=== PATIENT | female | born 1995 ===

== ENCOUNTER 2023-09-26 06:01 | Emergency (ER) | payer OTHER, SELFPAY ==
[2023-09-26 06:22] VITALS: BP 110/61; PULSE 62; RESP 20; TEMP 36.4; O2SAT 96; BMI 39.5
--- NOTE | 2023-09-26 07:13 | ED_ITS ---
HPI - General Adult General Chief complaint: General Medical Stated complaint: Abd pain after taking cold medicine Time Seen by Provider: 09/26/23 06:42 Source: patient Mode of arrival: ambulatory Limitations: no limitations History of Present Illness ED Provider: Callie VELASQUEZ HPI narrative: This is a 28-year-old female history of city presenting to the emergency department with complaints of sore throat, fatigue, myalgias, stuffy nose, congestion since Monday. Patient reports this started status post trip to [place]. Patient also states that this morning she took a Tylenol cold and head congestion severe pill, on an empty stomach and right after taking it she had epigastric burning/discomfort which has since subsided. She tells me she is feeling better now however her throat still hurts she is still having body aches and pains and congestion. Denies chest pain, shortness of breath, vision changes, dizziness, weakness, vomiting, diarrhea, fevers, chills. No sick co ntacts Related Data Previous Rx's ?Medication ?Instructions ?Recorded Magic Mouthwash 5 ml PO TID #240 mL 09/26/23 Diphen/Lido/Antacid 1:1:1 240 mL suspension Allergies Allergy/AdvReac Type Severity Reaction Status Date / Time aspirin Allergy Facial Verified 09/26/23 06:23 Swelling ibuprofen Allergy Facial Verified 09/26/23 06:23 Swelling Review of Systems Review of Systems: Yes all other systems are reviewed and are negative PMFSH Past Medical History Attestation statement: The following information was validated with the patient. Source: old records reviewed and nursing notes reviewed Social History Social History Smoked in Last 30 Days: No Use of substances other than those prescribed or required for medical reasons: No Advance Directives: No Advance Directives Information Provided: Yes Patient : No Physical Exam ED Vital Signs: Vital Signs - 24 hr 09/26/23 06:22 Temperature 97.5 F Pulse Rate 62 Respiratory Rate 20 Blood Pressure 110/61 Pulse Oximetry 96 Oxygen Delivery Method Room Air BMI result Body Mass Index 39.5 vss Appearance: Alert.? Oriented X3.? No acute distress.? Head: Normocephalic, atraumatic, no step-offs or deformities Eyes: Pupils equal, round and reactive to light.? ENT: Pharynx normal.?Uvula midline. Normal tonsils b/l no exudates or abscess. Speaking in full sentences controlling secretions well. Neck: Normal inspection.? Neck supple.? CVS: Normal heart rate and rhythm.? Pulses normal.? Respiratory: No respiratory distress.? Breath sounds normal.? Abdomen: Soft and nontender.?Negative murphys, mcburneys point, rosving. Skin: Skin warm and dry.? Normal skin color.? Normal skin turgor.? Extremities: No lower extremity edema.? No calf ttp. 5/5 strength to bilateral upper and lower extremities Neuro: Oriented X 3.? No motor deficit.? No sensory deficit. CN 2-12 intact Course Reevaluation(s) Reevaluation #1: Flu, COVID, RSV and strep negative. Monospot ordered and pending. Will discharge her with magic mouthwash, this is likely viral. No abdominal tenderness on exam therefore no indication for imaging at this time. Educated patient on diagnosis and treatment plan, answered all question, patient verbalizes understanding. At this time patient will be discharged home, advised to return with new or worsening symptoms. Educated on worrisome signs and symptoms and when to return. At this time I feel comfortable discharge home. Time: 08:23 Medical Decision Making Medical Decision Making [facility] Narrative: 722 28-year-old female presents with viral symptoms after returning from [place]. Patient also reports epigastric pain that started after taking a pill on an empty stomach which has since subsided. Physical exam benign History and physical exam concerning for flu versus COVID versus strep. Unlikely acute abdomen appendicitis, cholecystitis, diverticulitis, choledocholithiasis, cholangitis, obstruction. Unlikely metabolic derangements. No signs of peritonsillar abscess or retropharyngeal abscess or acute threat to airway Plan viral testing, strep test Differential Diagnosis Differential Diagnoses: The differential diagnosis associated with the presentation includes History and physical exam concerning for flu versus COVID versus strep. Unlikely acute abdomen appendicitis, cholecystitis, diverticulitis, choledocholithiasis, cholangitis, obstruction. Unlikely metabolic derangements. No signs of peritonsillar abscess or retropharyngeal abscess or acute threat to airway Admission/Observation Consideration of admission/observation: Escalation of care including admission/observation considered possible Lab Data [facility] Lab Attestation statement: I reviewed the patient's lab results. Labs: Lab Results 09/26/23 Range/Units 06:42 Influenza Type A (PCR) NEGATIVE (Negative) Influenza Type B (PCR) NEGATIVE (Negative) RSV RNA Qual (PCR) NEGATIVE (Negative) SARS-CoV-2 RNA (RT-PCR) NEGATIVE (Negative) S. pyogenes GrpA TONO Negative (Negative) Tests considered The following testing was considered but not selected: Considered CT abdomen and pelvis however no abdominal tenderness on exam, abdominal pain subsided. Chronic Conditions Patient?s care impacted by: Other (Obesity ) Discharge Plan Discharge Clinical Impression: Viral illness, Pharyngitis Patient Disposition: Home, Self-Care Instructions: Pharyngitis (ED), Viral Syndrome (ED) Additional Instructions: Take your medications as prescribed. If you were prescribed antibiotics today, it is important that you take your medication to their entirety, do not skip any doses, do not finish them early. Follow-up with your primary care provider this week. Return to the emergency department with new or worsening symptoms. Such as fevers, chills, chest pain, shortness of breath, nausea, vomiting, dizziness, headache, vision changes, lethargy In case of emergency call 911 Influenza- negative COVID- negative Strep- negative RSV- negative This is likely a viral illness and may last anywhere between 5-10 days. Garggle with salt water. Return with new or worsening symptoms Prescriptions: New Magic Mouthwash Diphen/Lido/Antacid 1:1:1 240 mL suspension 5 ml PO TID Qty: 240 0RF Rx Instructions: Lidocaine Viscous 2 % 80mL; diphenhydramine 12.5 mg/5 mL 80mL; aluminum-mag hydrox-simeth [id number]/5mL 80mL Swish and spit, do not swallow Referrals: Physician,Unknown J [Primary Care Provider] - 2 days Stand Alone Forms: Work/School Release Print Language: Uzbek
[2023-09-26 07:22] LABS: Influenza A PCR NEGATIVE (Negative); Influenza B PCR NEGATIVE (Negative); Resp Syncy Virus RNA Qual PCR NEGATIVE (Negative); SARS COV2 PCR INHOUSE NEGATIVE (Negative)
[2023-09-26 08:00] LABS: IDNOW Serial# 08D9AD1C; Strep A Nucleic Acid Negative (Negative)
[2023-09-26 08:27] VITALS: BP 100/52; PULSE 67; RESP 18; TEMP 36.4; O2SAT 99
[2023-09-26 09:28] LABS: Monotest Negative (Negative)
== END 2023-09-26 08:34 | disposition home or self-care (01) ==
PROVIDERS: Physician Assistant; Emergency Provider Emergency Medicine Emergency Medical Services
DX: B34.9 Viral infection, unspecified (principal); J02.9 Acute pharyngitis, unspecified; Z03.818 Encounter for observation for suspected exposure to other biological agents ruled out
CPT/HCPCS: 0241U; 36415; 86308; 87651; 99283; 99284

== ENCOUNTER 2024-09-26 23:59 | Emergency (ER) | payer SELFPAY ==
--- OUTSIDE RECORDS SUMMARY | 2019-05-02 12:19 | XMS_ITS | Continuity of Care Document ---
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 Role Phone Generic Provider, [facility] Unavailable Unavailabl e Allergies, Adverse Reactions, Alerts Substance Reaction Status Criticality aspirin angioedema Active No Information Medications Medication Instructions Dosage Effective Dates (start - stop) Status Comments Vitamin D3 1,000 unit tablet take one tablet by mouth daily - Active ibuprofen 600 mg tablet take 1 tablet by oral route every 6-8 hours PRN (with food) - Active Procedures Procedure Date IMMUNIZATION ADMIN Meningococcal, SG B,Recombit Protn&vesic le, 2 Dose OFFICE/OUTPATIENT VISIT, EST Prophylaxis-Child topical application of fluoride 016 Bitewings-Four Films Intraoral-Periapical First Film 016 Intraoral-Periapical Each Additional Jake m PURE TONE HEARING TEST, AIR PREV VISIT, EST, AGE 18-39 IMMUNIZATION ADMIN Meningococcal, SG B,Recombit Protn&vesic le, 2 Dose IMMUNIZATION ADMIN HEPB VACC PED/ADOL 3 DOSE IM IMMUNIZATION ADMIN, EACH ADD CHICKEN POX VACCINE, SC OFFICE/OUTPATIENT VISIT, EST IMMUNIZATION ADMIN H PAPILLOMA VACC 3 DOSE IM IMMUNIZATION ADMIN, EACH ADD TDAP VACCINE >7 IM IBUPROFEN, TABLET, 600 MG OFFICE/OUTPATIENT VISIT, EST IMMUNIZATION ADMIN HEP A VACC, PED/ADOL, 2 DOSE IMMUNIZATION ADMIN, EACH ADD MENINGOCOCCAL VACCINE IM OFFICE/OUTPATIENT VISIT, EST OFFICE/OUTPATIENT VISIT, NEW Advance Directives Directive Yes / No Effective Date File Name No Information Encounters Encounter Description Practice Location Reason(s) For Visit Diagnoses Date Provider Providers Copied on Encounter [facility], [address] [place] [address], [id number], [place] tel:[phone] [facility] Pediatrics No Information 0 Generic Provider [facility]. . OFFICE/OUTPA TIENT VISIT, [facility], [address] [place] [address], [id number], [place] tel:[phone] [facility] Adolescent Health vaccine update (chief complaint) Encounter for immunizationVit brad mcfarland 6 No Information [facility], [address] [place] [address], [address], [place] tel:[phone] [facility] Adolescent Health No Information 6 No Information [facility], [address] [place] [address], [address], [place] tel:[phone] [facility] Dental Encounter for dental exam and cleaning w/o abnormal findings 6 Mikel Ritter. [address] [place] [address], [id number] [place], [place], [id number], [place]. tel:[phone] PREV VISIT, EST, AGE 18-39 [facility], [address] [place] [address], [address], [place] tel:[phone] [facility] Adolescent Health school physical (chief complaint) Encounter for exam of ears and hearing w/o abnormal findingsObesity , unspecifiedEnco unter for immunizationEnc ounter for screening for respiratory tuberculosisScr eening for depressionWell child check w/ abnormal findingsPerfora chandra tympanic membrane, right 6 No Information OFFICE/OUTPA TIENT VISIT, [facility], [address] [place] [address], [facility], [place] tel:[phone] [facility] Adolescent Health f/u (chief complaint) HeadacheVaccina tion requiredObesity , unspecified 5 Harbry Taylor. [address], [id number] [place], [address], [place]. tel:[phone] OFFICE/OUTPA TIENT VISIT, [facility], [address] [place] [address], [facility], [place] tel:[phone] [facility] Adolescent Health headaches (chief complaint) Routine Medical ExamVaccination requiredHeadach e 5 Harbry Waqarev. [address] [facility], [id number] [place], [place], [facility], [place]. tel:[phone] OFFICE/OUTPA TIENT VISIT, [facility], [address] [place] [address], [facility], [place] tel:[phone] [facility] Adolescent Health F/U (chief complaint) Obesity, unspecifiedUnsp ecified vitamin d deficiencyConst ipation, unspecifiedVacc ination required 5 Harbry Zeev. [address] [facility], [id number] [place], [address], [place]. tel:[phone] OFFICE/OUTPA TIENT VISIT, [facility], [address] [place] [address], [facility], [place] tel:[phone] [facility] Pediatrics Establish care (chief complaint) Diabetes concerns (chief complaint) Fainting (chief complaint) SyncopeObesity, unspecifiedAcqu ired acanthosis nigricans 5 No Information Family History Family Member Type Diagnosis Age At Onset Problem (finding) Family history of diabetes mellitus type 2 Immunizations Vaccine Date Status Comments meningococcal B, OMV, 2 dose schedule administered Source: New Immuniza tion Record meningococcal B, OMV, 2 dose schedule administered Source: New Immuniza tion Record Varicella administered Source: New Imm unization Record Hep B (ped/adol, 3 dose) administered Kamini rce: New Immunization Record Tdap administered Source: New Imm unization Record HPV administered Source: New Imm unization Record Hep A (ped/adol, 2 dose) administered Kamini rce: New Immunization Record MCV4 (11-55 yrs) administered Source: New Immunization Record HPV administered Source: Other P rovider Hep A (ped/adol, 2 dose) administered Kamini rce: Other Provider MCV4 (11-55 yrs) administered Source: Oth er Provider varicella virus vaccine administered Sour ce: Other Provider Td, preservative free, (7 yr s and older) administered Source: Other Provid er HPV, unspecified formulation administered Source: Other Provider poliovirus vaccine, inactivated administe red Source: Other Provider measles, mumps and rubella virus vaccine administered Source: Other Provid er Haemophilus influenzae type b vaccine, conjugate unspecified formulation administered Source: Other Provid er diphtheria, tetanus toxoids and acellular pertussis vaccine administered Source: Othe r Provider Varicella administered Source: Other P rovider MMR administered Source: Other P rovider poliovirus vaccine, inactivated administe red Source: Other Provider hepatitis B vaccine, pediatr ic or pediatric/adolescent dosage administered Source: O ther Provider Haemophilus influenzae type b vaccine, conjugate unspecified formulation administered Source: Other Provid er diphtheria, tetanus toxoids and acellular pertussis vaccine administered Source: Othe r Provider poliovirus vaccine, inactivated administe red Source: Other Provider hepatitis B vaccine, pediatr ic or pediatric/adolescent dosage administered Source: O ther Provider Haemophilus influenzae type b vaccine, conjugate unspecified formulation administered Source: Other Provid er diphtheria, tetanus toxoids and acellular pertussis vaccine administered Source: Othe r Provider polio, inactive administered Source: Othe r Provider Hep B (ped/adol, 3 dose) administered Kamini rce: Other Provider Hib (PRP-OMP) administered Source: Other Provider DTaP (younger than 7 yrs) administered So urce: Other Provider Payers Payer name Insurance type Covered alliance party ID Kingsley lowery(s) KAROLINA Saravia [id number] D Medicaid [id number] KAROLINA Saravia [id number] KAROLINA Saravia [id number] KAROLINA Saravia [id number] KAROLINA Saravia [id number] Social History Type Description Quantity Date Captured Comments Sex Female Smoking Status No Information Sexual Orientation Choose not to disclose Gender Identity Female Chief Complaint And Reason For Visit No Information Reason For Referral Reason For Referral No Information Plan Of Treatment Date Type Action Status Goal Lifestyle education regardin g diet completed Referral Ordered: Referrals: Otolaryngology Appointment date/timeframe: 03/17/2016 ordered Patient Education Learning About Vitamin D completed History Of Present Illness Encounter Date Complaint History Of Prese nt Illness vaccine update Presents to the office for vaccine update. Due for Men B # 2. Also had full physical last month ( see chart) and was unable to reach patient about lab results as noted below: school physical Patient presents to the office for a school physical.TB risk assessment: Was patient born outside [place]? noHas patient traveled outside [place]? noHas patient been exposed to anyone with TB? noDoes patient have close contact with someone with + TST or IGRA? noDoes patient live with someone who has been in shelter, has lived in a alf, injects IV drugs or has HIV? noHas patient eaten unpasteurized cheese from [place] or [place]? No f/u Here for F/U. Le ss headaches. No vomiting. No awakenings b/o H/As. No fever. No runny nose.Has D/C vitamin D because she had H/A after taking it.Needs Hep B and Varivax based on serology.1. Went to [place] on 09/28/14 b/o constipation, was recommended Colace, now with regular BMS. 2. Hx of obesity, weight unchanged from last visit.3. Had syncope on 09/03/14. No other episodes since that time. Episode was on a hot day during which she did not drink enough. No chest pain.Came from [place] in 2011. No hospitalizations.Denies smoking and drug abuse. Regular periods, LMP-10/07/14. No sex yet. Will attend 11th grade at [employer]. Reports good mood, no SI.Sleeps 9 hours/night. Eats breakfast daily. Allergic to aspirin. headaches Here for F/U. Goddard s had headaches for the past 3 days. No vomiting. No awakenings. No fever. No runny nose.1. Went to [place] on 09/28/14 b/o constipation, was recommended Colace, now with regular BMS. 2. Hx of obesity, weight unchanged from last visit.3. Had syncope on 09/03/14. No other episodes since that time. Episode was on a hot day during which she did not drink enough. No chest pain.Came from [place] in 2011. No hospitalizations.Denies smoking and drug abuse. Regular periods, LMP-10/07/14. No sex yet. Will attend 11th grade at [employer]. Reports good mood, no SI.Sleeps 9 hours/night. Eats breakfast daily. Allergic to aspirin. F/U Here for F/U. 1. Went to [place] on 09/28/14 b/o constipation, was recommended Colace, still hard stools. 2. Hx of obesity, has gained 1.4 lbs from last visit.3. Had syncope on 09/03/14. No other episodes since that time. Episode was on a hot day during which she did not drink enough. No chest pain, no H/As.Came from [place] in 2012. No hospitalizations.Denies smoking and drug abuse. Regular periods, LMP-09/09/14. No sex yet. Will attend 11th grade at [employer]. Reports good mood, no SI.Sleeps 9 hours/night. Eats breakfast daily. Allergic to aspirin. Fainting Patient reports that she collapsed 3 days ago-- she reports feeling confused and dizzy. It is unclear if she loss consciousness. Patient reports that on the day of the incident it was very hot outside. Patient has been going to sleep at around 7am and sleeping until about 4pm. On that day, she ate around 6am and then went to sleep. She woke up in the afternoon and walked several blocks to the grocery store with her mother. She did not eat or have anything to drink. At the store she began to feel dizzy and weak and then fell to the floor while standing in the check out line. Mother is unsure if patient passed out but states that if she did it was only for a few seconds. Patient denied any concurrent chest pain or irregular feeling heart beat. She did not go to the emergency room following the incident.Mother and patient admit that patient does not drink much water. This is the first incident of syncope or near-syncope for this patient. Diabetes concerns Mother and pat linn express concern that patient may have diabetes due to the fact that there is a family history of diabetes and because patient recently fainted and feels faint or dizzy when she does not eat. Patient has never had any work-up by previous providers for diabetes. Establish care Alyce is a new p atient who presents today with her mother to establish care, and with concerns regarding recent syncope. Alyce and her mother deny any significant past medical history. Patient does not currently take any medications and has no medical diagnoses. She has no history of cardiac, respiratory, or neurological disorders. Functional Status Date Functional Assessmen t No Information Instructions Date Instruction Bill Chenr danemc Educated verbally an d in writing about diagnosis and treatment. Given patient education hand out as seen attached to chart. Increase calcium and vitamin D in the diet ( tuna, salmon, milk, orange juice, cod liver oil, fortified cereals, etc). Exposure to sunlight in the warmer months with sunscreen. Supplement as ordered, to purchase over the counter. Related to Vitamin D insufficiency Referral to ENT Related to Perfo rated tympanic membrane, right Recommend 30 minutes of physical activity daily, 3 healthy meals and 2 snacks, adequate servings of fruits, vegetables, low fat dairy and lean meats. Labs as ordered. Related to Obesity, unspecified Negative depression screen today . Related to Screening for depression Negative TB Question er - testing deferred today. Related to Encounter for screening for respiratory tuberculosis Follow up in one mon th for Men B # 2. Related to Encounter for immunization Follow up in one yea r for repeat exam, sooner for any concerns. Related to Well child check w/ abnormal findings Lifestyle education regarding di et Related to Obesity Assessments Type Assessment Date No Information Patient Care Teams Name Effective Dates (start - stop) Status Members No Information
[2024-09-27 00:04] VITALS: BP 118/62; PULSE 61; RESP 20; TEMP 36.5; O2SAT 100; BMI 38.7
[2024-09-27 00:45] LABS: MANUAL DIFF FLAG NO
--- NOTE | 2024-09-27 00:46 | ED_ITS ---
HPI - Nausea/Vomiting/Diarrhea General Chief complaint: Nausea/Vomiting/Diarrhea Stated complaint: N/V/D Time Seen by Provider: 09/27/24 00:04 History of Present Illness ED Provider: Fernando Wahl MD HPI Narrative: 29-year-old female who reports GI symptoms including nonbloody nonbilious vomiting after eating at [employer]. Related Data Previous Rx's ?Medication ?Instructions ?Recorded Magic Mouthwash 5 ml PO TID #240 mL 09/26/23 Diphen/Lido/Antacid 1:1:1 240 mL suspension Allergies Allergy/AdvReac Type Severity Reaction Status Date / Time aspirin Allergy Facial Verified 09/27/24 00:05 Swelling ibuprofen Allergy Facial Verified 09/27/24 00:05 Swelling PMFSH Social History Social History Smoked in Last 30 Days: No Use of substances other than those prescribed or required for medical reasons: No Advance Directives: No Physical Exam 2 Exam: Exam: EXAM: Gen: Alert, awake, well appearing, well hydrated. Head: Atraumatic Eyes: Anicteric, Normal conjunctiva. ENT: Moist mucosa, no pallor. ? Neck: Supple. Skin: ?No observable rash or bruising on exposed or examined skin Respiratory: Breathing comfortably, No distress.Clear to auscultation bilaterally, symmetric chest expansion, No wheeze, rales, ronchi. Cardiovascular: Regular rate and rhythm. No murmurs or rub. Well perfused periphery, warm extremities. No edema. ? Abdominal: No focal tenderness. Soft, no objective distension. No palpable masses or obvious organomegaly. ?No guarding, no rebound tenderness or other peritoneal findings. : No flank tenderness. Neuro: Alert. Gross movement of all extremities intact. ? Psych: Calm. Cooperative. MSK: No grossly visible deformity. Vital signs: See flowsheet Vital Signs: Vital Signs: Last Vital Signs Temp 98.0 F 09/27/24 01:54 Pulse 65 09/27/24 01:54 Resp 16 09/27/24 01:54 BP 110/59 L 09/27/24 01:54 Pulse Ox 99 09/27/24 01:54 O2 Del Method Room Air 09/27/24 01:54 BMI result Body Mass Index 38.7 Medications Administered Discontinued Medications Generic Name Dose Route Start Last Admin Trade Name Pedro PRN Reason Stop Dose Admin Ondansetron HCl 4 mg 09/27/24 00:48 09/27/24 00:59 Ondansetron Odt 4 Mg Tab.Domonique CABRALES 09/27/24 00:49 4 mg ONCE ONE Administration Medical Decision Making Medical Decision Making MDM Narrative: Medical Decision Makin-year-old female with GI symptoms after eating at [employer]. Friend who ate with her is also here for similar symptoms. No bloody vomit no abdominal tenderness. Patient's vitals and examination of reassuring. This is likely food-borne illness. Preliminary Favored Differential Diagnosis: Food-borne illness, gastroenteritis, dehydration among additional considered etiologies Testing Interpreted Independently: Not Applicable Radiology or Lab testing Results Reviewed: Not Applicable Consults: Not Applicable Independent Historians/External Chart Reviews: Not Applicable Social Determinants of Health Impacting MDM/Planning: Not Applicable Lab Data 09/27/24 00:41 09/27/24 00:41 Labs: Lab Results 09/27/24 Range/Units 00:41 WBC 5.7 (4.8-10.8) X10*3/uL RBC 4.22 (4.20-5.50) X10*6/uL Hgb 12.0 (12.0-16.0) g/dl Hct 34.6 L (37.0-47.0) % MCV 82.0 (80.0-98.0) fL MCH 28.4 (27.0-33.0) pg MCHC 34.7 (31.0-35.0) g/dl RDW 12.8 (11.0-16.0) % Plt Count 249 (160-400) X10*3/uL MPV 8.8 L (9.4-12.3) fL Immature Gran % (Auto) 0.2 (0.0-0.4) % Neut % (Auto) 47.5 (45-73) % Lymph % (Auto) 41.5 H (20-40) % Crook % (Auto) 7.9 (2-11) % Eos % (Auto) 2.4 (0-4) % Baso % (Auto) 0.5 (0-2) % Lymph # (Auto) 2.4 (1.2-4.9) X10*3/uL Crook # (Auto) 0.5 (0.1-1.2) X10*3/uL Eos # (Auto) 0.1 (0.0-0.4) X10*3/uL Baso # (Auto) 0.0 (0.0-0.2) X10*3/uL Abs Immat Gran (auto) 0.01 (0.00-0.03) X10*3/uL Absolute Neuts (auto) 2.7 (2.0-8.3) x10*3/uL Absolute Nucleated RBC 0.000 (0.0-0.012) X10*3/uL Nucleated RBC % (auto) 0.0 (0.0-0.2) /100WBC Sodium 141 (135-145) mmol/L Potassium 3.7 (3.3-5.1) mmol/L Chloride 107 (96-108) mmol/L Carbon Dioxide 25 (22-29) mmol/L Anion Gap 13 (12-20) BUN 13 (9-16) mg/dL Creatinine 0.59 (0.5-1.4) mg/dL Estim Creat Clear Calc 178.8 Estimated GFR > 60 Random Glucose 106 (60-115) mg/dL Calcium 9.2 (8.4-10.2) mg/dL Total Bilirubin 0.2 (0.0-1.0) mg/dL AST 16 (5-31) U/L ALT 11 (0-31) U/L Alkaline Phosphatase 64 (39-117) U/L Total Protein 7.5 (6.5-8.0) g/dL Albumin 4.3 (3.5-5.0) g/dL Discharge Plan Discharge Clinical Impression: Gastroenteritis Patient Disposition: Home, Self-Care Instructions: Acute Nausea and Vomiting (DC), Acute Diarrhea (ED) Additional Instructions: _ DISCHARGE DIAGNOSES: nause vomiting and diarrhea, likely food borne illness HISTORY OF PRESENTATION: ?nausea and vomiting with diarrhea EMERGENCY DEPARTMENT COURSE,TESTS, TREATMENTS: While in the ED today you received zofran a nausea medicine and had blood work done which was reassuring DISCHARGE MEDICATIONS: ?[We have made no changes to your regular medication regimen] FOLLOW-UP: ?Call your primary or general physician soon as possible to discuss your symptoms, your ED visit and to discuss follow up plans INSTRUCTIONS ?& RETURN PRECAUTIONS: If any symptoms change first call your primary physician, if it is after-hours your primary doctors office should have a provider reconciliation analyst you can speak with. If the symptoms are severe or very concerning to you then call 911 or return to the ED. Fernando Wahl MD Emergency Physician [facility] Prescriptions: No Action Magic Mouthwash Diphen/Lido/Antacid 1:1:1 240 mL suspension 5 ml PO TID Qty: 240 0RF Rx Instructions: Lidocaine Viscous 2 % 80mL; diphenhydramine 12.5 mg/5 mL 80mL; aluminum-mag hydrox-simeth [id number]/5mL 80mL Swish and spit, do not swallow Interventions: ED Discharge Assessment Last Done: 09/27/24 01:53 Discharge Date/Time: 09/27/24 01:55 Print Language: Slovenian
[2024-09-27 00:47] LABS: Hematocrit 34.6 % (37.0-47.0); Hemoglobin 12.0 g/dl (12.0-16.0); Imm Gran Abs Auto 0.01 X10*3/uL (0.00-0.03); Imm Gran Pct Auto 0.2 % (0.0-0.4); Lymphocytes Absolute Auto 2.4 X10*3/uL (1.2-4.9); Mean Corpuscular HGB Conc 34.7 g/dl (31.0-35.0); Mean Corpuscular Hemoglobin 28.4 pg (27.0-33.0); Mean Corpuscular Volume 82.0 fL (80.0-98.0); NRBC Abs Auto 0.000 X10*3/uL (0.0-0.012); NRBC Pct Auto 0.0 /100WBC (0.0-0.2); Platelet Count 249 X10*3/uL (160-400); Red Blood Count 4.22 X10*6/uL (4.20-5.50); White Blood Count 5.7 X10*3/uL (4.8-10.8)
--- OUTSIDE RECORDS SUMMARY | 2024-09-27 00:52 | XMS_ITS | Clinical Summary ---
Author Organization [facility] ity Address [address] [place] [address] Care Team Providers Care Roof Mechanic Name Role Phone Unavailable Primary Care Provider Unavailabl e Social History Tobacco Use Types Packs/Day Years Used Date Smoking Tobacco: Never Smokeless Tobacco: Never Alcohol Use Standard Drinks/Week Comments No 0 (1 standard drink = 0.6 oz pur e alcohol) Comments Unknown Sex and Gender Information Value Date Recorded Sex Assigned at Not on file Legal Sex Female 2:33 PM EST Gender Identity Not on file Sexual Orientation Not on file Obstetrics History Plan of Treatment Health Maintenance Due Date Last Done Comments DTaP,Tdap,and Td Vaccines (1 - Tdap) 2016 Hepatitis B Vaccines (1 of 3 - 19+ 3-dose series) 2016 Cervical Cancer Screening: P ap Smear 2018 COVID-19 Vaccine ( - 2023-2 5 season) 2023 Depression Screening 03/06/2024 Influenza Vaccine (#1) 2024 HIB Vaccines Aged Out No longer eligi ble based on patient's age to complete this topic HPV Vaccines Aged Out No longer eligi ble based on patient's age to complete this topic Hepatitis A Vaccines Aged Out No long er eligible based on patient's age to complete this topic IPV Vaccines Aged Out No longer eligi ble based on patient's age to complete this topic MMR Vaccines Aged Out No longer eligi ble based on patient's age to complete this topic Meningococcal ACWY Vaccine Aged Out N o longer eligible based on patient's age to complete this topic Meningococcal B Vaccine Aged Out No l onger eligible based on patient's age to complete this topic Pneumococcal Vaccine: Pediat rics (0 to 5 Years) and At-Risk Patients (6 to 49 Years) Aged Out No longer eligible b ased on patient's age to complete this topic RSV Immunization Patients Un manuelito 20 months Aged Out No longer eligible b ased on patient's age to complete this topic Varicella Vaccines Aged Out No longer eligible based on patient's age to complete this topic
[2024-09-27 01:00] LABS: Alanine Aminotransferase 11 U/L (0-31); Albumin Level 4.3 g/dL (3.5-5.0); Alkaline Phosphatase 64 U/L (39-117); Anion Gap 13 (12-20); Aspartate Amino Transferase 16 U/L (5-31); Blood Urea Nitrogen 13 mg/dL (9-16); Calcium 9.2 mg/dL (8.4-10.2); Carbon Dioxide 25 mmol/L (22-29); Chloride 107 mmol/L (96-108); Creatinine Clr Calc Pharmacy 178.8; Estimated Glomerular Filt Rate > 60; Potassium 3.7 mmol/L (3.3-5.1); Sodium 141 mmol/L (135-145); Total Protein 7.5 g/dL (6.5-8.0)
--- NOTE | 2024-09-27 01:52 | PC.NURSE ---
pt reports feeling much better, reviewed discharge instructions with pt, pt verbalized understanding, no sign of distress.
[2024-09-27 01:53] VITALS: BP 110/59; PULSE 65; RESP 16; TEMP 36.7; O2SAT 99
[2024-09-27 01:54] VITALS: BP 110/59; PULSE 65; RESP 16; TEMP 36.7; O2SAT 99
== END 2024-09-27 01:55 | disposition home or self-care (01) ==
PROVIDERS: Emergency Provider Emergency Medicine
DX: K52.9 Noninfective gastroenteritis and colitis, unspecified (principal); R11.10 Vomiting, unspecified
CPT/HCPCS: 36415; 80053; 85025; 99283; 99284

== ENCOUNTER 2024-12-16 22:55 | Emergency (ER) | payer SELFPAY ==
--- OUTSIDE RECORDS SUMMARY | 2019-05-02 12:19 | XMS_ITS | Continuity of Care Document ---
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 . OFFICE/OUTPA TIENT VISIT, [facility], [address] [place] [address], [address], [place] tel:[phone] [facility] Adolescent Health vaccine update (chief complaint) Encounter for immunizationVit brad mcfarland 6 No Information [facility], [address] [place] [address], [address], [place] tel:[phone] [facility] Adolescent Health No Information 6 No Information [facility], [address] [place] [address], [address], [place] tel:[phone] [facility] Dental Encounter for dental exam and cleaning w/o abnormal findings 6 Mikel Ritter. [address] [place] [address], [id number] [place], [place], [id number], [place]. tel:[phone] PREV VISIT, EST, AGE 18-39 [facility], [address] [place] [address], [address], [place] tel:[phone] [facility] Adolescent Health school physical (chief complaint) Encounter for exam of ears and hearing w/o abnormal findingsObesity , unspecifiedEnco unter for immunizationEnc ounter for screening for respiratory tuberculosisScr eening for depressionWell child check w/ abnormal findingsPerfora chandra tympanic membrane, right 6 No Information OFFICE/OUTPA TIENT VISIT, [facility], [address] [place] [address], [facility], [place] tel:[phone] [facility] Adolescent Health f/u (chief complaint) HeadacheVaccina tion requiredObesity , unspecified 5 Harbry Taylor. [address], [id number] [place], [address], [place]. tel:[phone] OFFICE/OUTPA TIENT VISIT, [facility], [address] [place] [address], [facility], [place] tel:[phone] [facility] Adolescent Health headaches (chief complaint) Routine Medical ExamVaccination requiredHeadach e 5 Harbry Waqarev. [address] [facility], [id number] [place], [place], [facility], [place]. tel:[phone] OFFICE/OUTPA TIENT VISIT, [facility], [address] [place] [address], [facility], [place] tel:[phone] [facility] Adolescent Health F/U (chief complaint) Obesity, unspecifiedUnsp ecified vitamin d deficiencyConst ipation, unspecifiedVacc ination required 5 Harbry Zeev. [address] [facility], [id number] [place], [address], [place]. tel:[phone] OFFICE/OUTPA TIENT VISIT, [facility], [address] [place] [address], [facility], [place] tel:[phone] [facility] Pediatrics Establish care (chief complaint) Diabetes concerns [...] Provider Payers Payer name Insurance type Covered republican ID Kingsley lowery(s) KAROLINA Saravia [id number] D Medicaid [id number] KAROLINA Saravia [id number] KAROLINA Saravia [id number] KAROLINA Saravia [id number] KAROLINA Saravia [id number] Social History Type Description Quantity Date Captured [...] live with someone who has been in snf, has lived in a residential, injects IV drugs or has HIV? noHas patient eaten unpasteurized cheese from [place] or [place]? No f/u Here for F/U. Le ss headaches. No vomiting. No awakenings b/o H/As. No fever. No runny nose.Has D/C vitamin D because she had H/A after taking it.Needs Hep B and Varivax based on serology.1. Went to [place] on 09/28/14 b/o constipation, was recommended Colace, now with regular BMS. 2. Hx of obesity, weight unchanged from last visit.3. Had syncope on 09/03/14. No other episodes since that time. Episode was on a hot day during which she did not drink enough. No chest pain.Came from [place] in 2011. No hospitalizations.Denies smoking and drug abuse. Regular periods, LMP-10/07/14. No sex yet. Will attend 11th grade at [employer]. Reports good mood, no SI.Sleeps 9 hours/night. Eats breakfast daily. Allergic to aspirin. headaches Here for F/U. Goddard s had headaches for the past 3 days. No vomiting. No awakenings. No fever. No runny nose.1. Went to [place] on 09/28/14 b/o constipation, was recommended Colace, now with regular BMS. 2. Hx of obesity, weight unchanged from last visit.3. Had syncope on 09/03/14. No other episodes since that time. Episode was on a hot day during which she did not drink enough. No chest pain.Came from [place] in 2011. No hospitalizations.Denies smoking and drug abuse. Regular periods, LMP-10/07/14. No sex yet. Will attend 11th grade at [employer]. Reports good mood, no SI.Sleeps 9 hours/night. Eats breakfast daily. Allergic to aspirin. F/U Here for F/U. 1. Went to [place] on 09/28/14 b/o constipation, was recommended Colace, still hard stools. 2. Hx of obesity, has gained 1.4 lbs from last visit.3. Had syncope on 09/03/14. No other episodes since that time. Episode was on a hot day during which she did not drink enough. No chest pain, no H/As.Came from [place] in 2012. No hospitalizations.Denies smoking and drug abuse. Regular periods, LMP-09/09/14. No sex yet. Will attend 11th grade at [employer]. Reports good mood, no SI.Sleeps 9 hours/night. [...] t No Information Instructions Date Instruction Bill holden Educated verbally an d in writing about diagnosis and treatment. Given patient education hand out as seen attached to chart. Increase calcium and vitamin D in the diet ( tuna, salmon, milk, orange juice, cod liver oil, fortified cereals, etc). Exposure to sunlight in the warmer months with sunscreen. Supplement as ordered, to purchase over the counter. Related to Vitamin D insufficiency Negative depression screen today . Related to Screening for depression Negative TB Question er - testing deferred today. Related to Encounter for screening for respiratory tuberculosis Follow up in one mon for Men B # 2. Related to Encounter for immunization Referral to ENT Related to Perfo rated tympanic membrane, right Recommend 30 minutes of physical activity daily, 3 healthy meals and 2 snacks, adequate servings of fruits, vegetables, low fat dairy and lean meats. Labs as ordered. Related to Obesity, unspecified Follow up in one toshia hayes for repeat exam, sooner for any concerns. Related to Well child check w/ abnormal findings Lifestyle education regarding di et Related to Obesity Assessments Type Assessment Date No Information Patient Care Teams Name Effective Dates (start - stop) Status Members No Information
--- NOTE | ~2024-12-16 | XR_ITS ---
CLINICAL HISTORY: knee injury 5 view right knee Comparison: None provided Findings: No fractures or dislocations. No significant arthritic change or erosions. No joint effusion. No radiopaque foreign body. IMPRESSION: 1. No acute findings. This document has been electronically signed by: Loc Julian MD on 12/17/2024 00:12:16
[2024-12-16 23:10] VITALS: BP 112/72; PULSE 70; RESP 18; TEMP 36.4; O2SAT 98; BMI 40.8
--- NOTE | 2024-12-16 23:51 | ED_ITS ---
HPI - Extremity Injury (Lower) General Chief Complaint: Extremity Injury, Lower Stated Complaint: rt leg pain, unable to put pressure Time Seen by Provider: 12/16/24 23:50 Source: patient Mode of arrival: ambulatory Limitations: no limitations History of Present Illness ED Provider: Mike TOTH HPI Narrative: The patient is a 29-year-old female presenting to the ED for evaluation of right knee pain after she bumped her knee against the couch tonight at 21:00. The patient reports she felt a pop in pain since that time. Patient reports pain with bearing weight and full straightening. The patient denies previous injury or surgery to the affected extremity, denies distal paresthesias or other acute complaint. Patient reports she is able to walk on the affected extremity but with pain. Related Data Previous Rx's ?Medication ?Instructions ?Recorded Magic Mouthwash 5 ml PO TID #240 mL 09/26/23 Diphen/Lido/Antacid 1:1:1 240 mL suspension Allergies Allergy/AdvReac Type Severity Reaction Status Date / Time aspirin Allergy Facial Verified 12/16/24 23:13 Swelling ibuprofen Allergy Facial Verified 12/16/24 23:13 Swelling Review of Systems Review of Systems: Yes all other systems are reviewed and are negative PMFSH Social History Social History Advance Directives: No Advance Directives Information Provided: Yes Physical Exam Vital Signs: Vital Signs: Last Vital Signs Temp 97.6 F 12/16/24 23:10 Pulse 70 12/16/24 23:10 Resp 18 12/16/24 23:10 BP 112/72 12/16/24 23:10 Pulse Ox 98 12/16/24 23:10 O2 Del Method Room Air 12/16/24 23:10 BMI result Body Mass Index 40.8 CONSTITUTIONAL: The patient appears non-toxic, well nourished and in no acute distress. Vital signs as documented. HEAD: Atraumatic, normocephalic. EYES: EOMs grossly intact, pupils equal, conjunctiva clear, no exudate. ENT: Nares patent, no discharge. Airway patent, no audible stridor, visible mucosa is pink and moist without noted lesions. NECK: trachea is midline, no obvious masses or gross abnormalities. CHEST: Symmetric movement, normal appearance. LUNGS: Non-labored work of breathing. CARDIAC: No evidence of hypoperfusion. ABDOMEN: Nondistended, no obvious injury. : Deferred. EXTREMITIES: There is no appreciated ligament laxity, meniscal pain with manipulation, swelling, erythema, or bony tenderness. The patient does have point tenderness of the medial aspect of the quadriceps tendon however extensor mechanism is intact. Distal CSM is intact, 2+ DP/PT pulses. Patient is able to ambulate on the affected extremity unassisted but with evidence of pain. Moves all other extremities spontaneously without reported pain. No obvious injury or deformity noted. NEURO: Alert and oriented x3, CN II-XII appear grossly intact. Cerebellar Functioning grossly intact. Speech clear and appropriate. SKIN: Warm, dry, color appropriate. No rashes or lesions noted. Medical Decision Making Medical Decision Making MDM Narrative: 12:25 AM 12/17/2024 (Raffaele TOTH): The patient is a 29-year-old female presenting to the ED for evaluation of right knee pain after she bumped her knee against the couch tonight at 21:00. The patient reports she felt a pop in pain since that time. Patient reports pain with bearing weight and full straightening. The patient denies previous injury or surgery to the affected extremity, denies distal paresthesias or other acute complaint. Patient reports she is able to walk on the affected extremity but with pain. On exam the patient has no ligament laxity, meniscal pain with manipulation, swelling, erythema, or bony tenderness. The patient does have point tenderness of the medial aspect of the quadriceps tendon however extensor mechanism is intact. Distal CSM is intact, 2+ DP/PT pulses. Patient is able to ambulate on the af fected extremity unassisted but with evidence of pain. Discharge Plan Discharge Clinical Impression: Acute knee pain Patient Disposition: Home, Self-Care Instructions: Crutch Instructions (ED), Knee Pain (ED) Additional Instructions: Thank you for choosing [facility]'s Emergency Department for your care today. Thankfully your x-ray today shows no evidence of an acute fracture, dislocation, or joint effusion. Your exam shows no evidence of meniscal injury or ligament laxity. At this time there is no indication for admission to the hospital or continued ED observation, and it is safe to discharge you home. Your exam is consistent with likely a bruise to the right anterior knee. You may take Tylenol 1000mg every 6 hours as needed for any additional pain. Please use the crutches provided to bear weight as tolerated. Please rest the injured area, and apply ice for 20 minutes every hour. We have also treated you with a lidocaine patch, if you find this provides you significant relief additional patches can be purchased at any local pharmacy without a prescription. Please follow up with your primary care physician for re-evaluation, additional management of your symptoms, and continued preventative care. If your pain does not improve over the next 3-4 days please contact our orthopedic office for additional evaluation of your pain. If you do not have a primary care physician, please call the [facility] at [phone] to establish a new primary care physician. While waiting to establish your new primary care physician, you can call our Walk-in Care Clinic at [phone] for non-emergency needs. Please return to the emergency department if you develop a severe or sudden change in your symptoms, a fever over 100.4 that does not improve with Tylenol or Ibuprofen, recurrent vomiting, or any other new or worsening symptoms or concerns. Prescriptions: No Action Magic Mouthwash Diphen/Lido/Antacid 1:1:1 240 mL suspension 5 ml PO TID Qty: 240 0RF Rx Instructions: Lidocaine Viscous 2 % 80mL; diphenhydramine 12.5 mg/5 mL 80mL; aluminum-mag hydrox-simeth [id number]/5mL 80mL Swish and spit, do not swallow Referrals: [facility] Orthopedic Surgeons [Provider Group] Clinical Impression: Acute knee pain Print Language: South Sudanese
--- OUTSIDE RECORDS SUMMARY | 2024-12-17 00:38 | XMS_ITS | Clinical Summary ---
Author Organization [facility] Address [address] [place] [address] Care Team Providers Care High Density Press Operator Name Role Phone Pcp, [place] HOLLIDAY Primary Care Provider [phone] Allergies Active Allergy Reactions Criticality Noted Date Comments Aspirin 09/28/2014 Ibuprofen Swelling 08/24/2018 Medications Medication Sig Dispensed Refills Start Date End Date Status ciprofloxacin-dexameth asone (CIPRODEX) otic suspension Place 4 drops into both ears 2 (two) times a day. 7.5 mL 0 04/26/2019 Active acetaminophen (TYLENOL) 325 MG tablet Take 2 tablets (650 mg total) by mouth every 6 (six) hours as needed for pain. 120 tablet 0 04/26/2019 Active ondansetron (ZOFRAN-ODT) 8 MG disintegrating tablet Take 1 tablet (8 mg total) by mouth every 8 (eight) hours as needed for nausea. 20 tablet 0 04/26/2019 Active Social History Tobacco Use Types Packs/Day Years Used Date Smoking Tobacco: Never Smokeless Tobacco: Never Alcohol Use Standard Drinks/Week Comments No 0 (1 standard drink = 0.6 oz pur e alcohol) Sex and Gender Information Value Date Recorded Sex Assigned at Female 08/01/2018 6:40 PM EDT Gender Identity Not on file Sexual Orientation Not on file Last Filed Vital Signs Vital Sign Reading Time Taken Comments Blood Pressure 106/61 04/26/2019 8:57 AM EST Pulse 89 04/26/2019 8:57 AM EST Temperature 37.1 C (98.8 F) 04/26/2019 8:57 AM EST Respiratory Rate 18 04/26/2019 8:57 AM EST Oxygen Saturation 98% 04/26/2019 8:57 AM EST Inhaled Oxygen Concentration - - Weight 90.7 kg (200 lb) 04/26/2019 8:57 AM EST Height 167.6 cm (5' 6 ) 04/26/2019 8:57 AM EST Body Mass Index 32.28 04/26/2019 8:57 AM EST Plan of Treatment Health Maintenance Due Date Last Done Comments Hepatitis B Vaccines (1 of 3 - 3-dose series) 1997 Hepatitis C Screening 1997 COVID-19 Vaccine (#1) 03/11/1998 Depression Screening 2009 BMI Counseling 09/09/2015 Preventative Health Evaluation 09/09/2015 DTap / Tdap / Td (1 - Tdap) 2016 Cervical Cancer Screening (P ap Smear) 2018 Influenza Vaccine (#1) 2024 Pneumococcal Vaccine Aged Out No long er eligible based on patient's age to complete this topic RSV Ped < 20 months Aged Out No longe r eligible based on patient's age to complete this topic Care Teams High Density Press Operator Relationship Specialty Start Date End Date Pcp, MD [place] [address] [place] [address] [phone] PCP - General Special Education Superintendent 06/20/16
--- OUTSIDE RECORDS SUMMARY | 2024-12-17 00:38 | XMS_ITS | Clinical Summary ---
Author Organization [facility] ity Address [address] [place] [address] Care Team Providers Care Guard Range Name Role Phone Unavailable Primary Care Provider [...] Cervical Cancer Screening: P ap Smear 2018 Depression Screening 03/06/2024 HPV Vaccines (1 - 3-dose SCD M series) 2024 COVID-19 Vaccine (1 - 2023-2 5 season) 2024 Influenza Vaccine (#1) 2024 RSV Immunization Adult Patie nts (1 - 1-dose 75+ series) 2072 HIB Vaccines Aged Out No longer eligi [...]
[2024-12-17 01:30] VITALS: BP 112/72; PULSE 70; RESP 18; TEMP 36.4; O2SAT 98
[2024-12-17] MEDS: Lidocaine 4 % Patch ADH..PATCH 1 PATCH TRANSDERMA (01:33)
== END 2024-12-17 01:30 | disposition home or self-care (01) ==
PROVIDERS: Emergency Provider Emergency Medicine
DX: M25.561 Pain in right knee (principal)
CPT/HCPCS: 73564; 99283

== ENCOUNTER → 2024-12-16 23:20 | Outpatient (BNV) | payer SELFPAY | PROVIDERS: Emergency Provider Emergency Medicine; Visit Provider Radiology Diagnostic Radiology | DX: M25.561 Pain in right knee (principal); W22.03XA Walked into furniture, initial encounter | CPT/HCPCS: 73564 ==